=== PATIENT | male | born 1975 | race Caucasian/White ===

== ENCOUNTER 2018-02-06 20:38 | Emergency (ER) | payer SELFPAY ==
[2018-02-06] MEDS ORDERED: NORMAL SALINE 500 ML IV ONE (21:24)
[2018-02-06] MEDS ORDERED: ASPIRIN 81 MG TABLET, CHEWABLE PO ONE (21:24)
[2018-02-06] MEDS ORDERED: ONDANSETRON HCL INJ/PF 4 MG/2 ML SDV IV ONE (21:24)
[2018-02-06 21:42] LABS: ABSOLUTE LYMPHOCYTES (AUTO) 1.5 10^3/uL (0.5-4.7); ABSOLUTE MONOCYTES (AUTO) 0.5 10^3/uL (0.1-1.4); ABSOLUTE NEUT (AUTO) 13.5 10^3/uL (1.7-8.2); BASOPHILS % (AUTO) 0.1 % (0-2); HEMATOCRIT 45.1 % (37.9-51.0); HEMOGLOBIN 15.7 g/dL (13.5-17.0); LYMPHOCYTES % (AUTO) 9.4 % (13-45); MEAN CORPUSCULAR HEMOGLOBIN 29.6 pg (27.0-33.4); MEAN CORPUSCULAR HGB CONC 34.7 g/dL (32.0-36.0); MEAN CORPUSCULAR VOLUME 86 fl (80-97); MONOCYTES % (AUTO) 3.5 % (3-13); PLATELET COUNT 335 10^3/uL (150-450); RED BLOOD COUNT 5.28 10^6/uL (4.35-5.55); RED CELL DISTRIBUTION WIDTH 13.4 % (11.5-14.0); TOTAL CELLS COUNTED % (AUTO) 100 %; WHITE BLOOD COUNT 15.5 10^3/uL (4.0-10.5)
[2018-02-06 21:52] LABS: INTERNATIONAL RATION (INR) 1.04; PROTHROMBIN TIME 14.1 SEC (11.4-15.4)
[2018-02-06 22:02] LABS: ALANINE AMINOTRANSFERASE 43 U/L (21-72); ALBUMIN 4.6 g/dL (3.5-5.0); ALKALINE PHOSPHATASE 76 U/L (38-126); ANION GAP 16 (5-19); ASPARTATE AMINO TRANSFERASE 26 U/L (17-59); BILIRUBIN,DIRECT 0.3 mg/dL (0.0-0.4); BILIRUBIN,TOTAL 0.5 mg/dL (0.2-1.3); BLOOD UREA NITROGEN 10 mg/dL (7-20); CARBON DIOXIDE 26 mmol/L (22-30); CHLORIDE 101 mmol/L (98-107); CREATINE KINASE 102 U/L (55-170); GLUCOSE 129 mg/dL (75-110); POTASSIUM 4.6 mmol/L (3.6-5.0); SODIUM 142.7 mmol/L (137-145); TOTAL PROTEIN 7.6 g/dL (6.3-8.2)
--- NOTE | 2018-02-06 22:13 | ER Document Report ---
ED General - General Mode of Arrival: Ambulatory Information source: Patient TRAVEL OUTSIDE OF THE U.[place]. IN LAST 30 DAYS: No <GRIS STAUFFER - Last Filed: 02/07/18 00:51> <BISHOP CRAWFORD - Last Filed: 02/07/18 04:22> - General Chief Complaint: Chest Pain Stated Complaint: VOMITING Time Seen by Provider: 02/06/18 21:18 Notes: Patient is a 42 year old male that presents to the emergency department today with complaints of dizziness with associated nausea. Patient states he was awoken this morning with a feeling of nausea. Patient states he walked to the kitchen thinking that he might need to eat something. states she heard the patient so she got up as well and found him lying on the kitchen floor vomiting. Patient also complains of a headache. Patient states he has been having headaches his whole life but they have gotten worse in the last 3 months. states the patient is not acting like himself and has been shivering and sweating profusely since waking up this morning. Patient and deny any fevers. (GRIS STAUFFER) - Related Data Allergies/Adverse Reactions: No Known Allergies Allergy (Verified 02/06/18 21:31) Past Medical History - General Information source: Patient - Social History Smoking Status: Current Every Day Smoker Cigarette use (# per day): Yes Frequency of alcohol use: None Drug Abuse: None Lives with: Family Family History: Reviewed & Not Pertinent Patient has suicidal ideation: No Patient has homicidal ideation: No Renal/ Medical History: Denies: Hx Peritoneal Dialysis GI Medical History: Reports: Hx Gastroesophageal Reflux Disease Surgical Hx: Negative <GRIS STAUFFER - Last Filed: 02/07/18 00:51> Review of Systems - Review of Systems Constitutional: See HPI, Chills, Diaphoresis. denies: Fever EENT: No symptoms reported Cardiovascular: See HPI, Dizziness Respiratory: No symptoms reported Gastrointestinal: See HPI, Nausea, Vomiting Genitourinary: No symptoms reported Male Genitourinary: No symptoms reported Musculoskeletal: No symptoms reported Skin: No symptoms reported Hematologic/Lymphatic: No symptoms reported Neurological/Psychological: See HPI, Headaches. denies: Weakness, Numbness, Tingling -: Yes All other systems reviewed and negative <GRIS STAUFFER - Last Filed: 02/07/18 00:51> Physical Exam - Vital signs Interpretation: Normal - General General appearance: Alert In distress: Mild - Respiratory Respiratory status: No respiratory distress Breath sounds: Normal - Cardiovascular Rhythm: Regular - Abdominal Inspection: Normal Tenderness: Nontender - Back Back: Normal - Extremities General upper extremity: Normal inspection, Normal ROM General lower extremity: Normal inspection, Normal ROM - Neurological Neuro grossly intact: No Cognition: Confused Orientation: Disoriented to place, Disoriented to time [place] Coma Scale Eye Opening: Spontaneous [place] Coma Scale Verbal: Confused [place] Coma Scale Motor: Obeys Commands Nohemi Coma Scale Total: 14 Speech: Normal Cranial nerves: Normal Cerebellar coordination: Gait ataxia Motor strength normal: LUE, RUE, LLE, RLE - Psychological Associated symptoms: Normal affect, Normal mood - Skin Skin Temperature: Warm Skin Moisture: Dry Skin Color: Normal <BISHOP CRAWFORD - Last Filed: 02/07/18 04:22> - Vital signs Vitals: Temp Pulse Resp BP Pulse Ox 98.2 F 92 20 146/91 H 99 02/06/18 20:59 02/06/18 20:59 02/06/18 20:59 02/06/18 20:59 02/06/18 20:59 Course - Laboratory Result Diagrams: 02/06/18 21:23 02/06/18 21:23 <GRIS STAUFFER - Last Filed: 02/07/18 00:51> - Laboratory Result Diagrams: 02/06/18 21:23 02/06/18 21:23 - Diagnostic Test Radiology reviewed: Image reviewed, Reports reviewed <BISHOP CRAWFORD - Last Filed: 02/07/18 04:22> - Re-evaluation Re-evalutation: 02/07/18 02:17 Patient is a 42-year-old male who presented with nausea and vomiting. Patient is difficult to get a history out of and states that the patient has not been acting himself most of the day. States that he keeps falling over and has been vomiting a lot today. Patient does not know the month or the year. He is having a difficult time remembering where he is. Patient answers questions but not with an answer that necessarily make sense. For example when I am asking him if he has had a headache. Patient tells me that he has been nauseated all day. Patient eventually stated that he did have a headache and he has been having them for some time. states that she has been unaware of this. CT showing right cerebellar edema. Patient does have symptoms correlating with this such as being off balance with nausea vomiting and headache. Patient has not had a fever although he does have some leukocytosis. Discussed with neurology at [facility] who agrees that the patient should be transferred as there is no neurology available here and given the edema in the posterior fossa , concern for possible neurosurgical intervention will be required. Does not recommend seizure prophylaxis or dexamethasone at this time. I discussed this at length with the patient and his . is agreeable to transfer. Patient has had stable vitals with no severe hypertension. Nausea and vomiting have been controlled with Zofran and Reglan. Stable at the time of transfer to [facility]. (BISHOP CRAWFORD) - Vital Signs Vital signs: Temp Pulse Resp BP Pulse Ox 97.5 F 64 16 139/78 H 96 02/07/18 02:00 02/06/18 23:58 02/07/18 02:00 02/07/18 02:00 02/07/18 02:00 - Laboratory Laboratory results interpreted by me: 02/06/18 02/06/18 21:23 21:23 WBC 15.5 H Seg Neutrophils % 87.0 H Lymphocytes % 9.4 L Absolute Neutrophils 13.5 H Glucose 129 H Discharge <GRIS STAUFFER - Last Filed: 02/07/18 00:51> <BISHOP CRAWFORD - Last Filed: 02/07/18 04:22> - Discharge Clinical Impression: Acute CVA (cerebrovascular accident) Vomiting Qualifiers: Vomiting type: unspecified Vomiting Intractability: unspecified Nausea presence : with nausea Qualified Code(s): R11.2 - Nausea with vomiting, unspecified Headache Qualifiers: Headache type: unspecified Headache chronicity pattern: acute headache Intractability: intractable Qualified Code(s): R51 - Headache Altered mental status Qualifiers: Altered mental status type: unspecified Qualified Code(s): R41.82 - Altered mental status, unspecified Condition: Stable Disposition: [facility] Referrals: RAFAEL KIM MD [Primary Care Provider] - Follow up as needed Scribe Attestation: 02/07/18 04:17 I personally performed the services described in the documentation, reviewed and edited the documentation which was dictated to the scribe in my presence, and it accurately records my words and actions. (BISHOP CRAWFORD) Scribe Documentation - Scribe Written by Scribe:: Hernandez Hollingsworth, 02/07/2018 0101 acting as scribe for :: Maria Del Carmen <GRIS STAUFFER - Last Filed: 02/07/18 00:51>
[2018-02-06 22:14] LABS: CREATINE KINASE MB 1.26 ng/mL (<4.55)
[2018-02-06 22:15] LABS: TROPONIN I < 0.012 ng/mL
--- NOTE | 2018-02-06 22:59 | RADIOLOGY REPORT (SQ) ---
EXAM DESCRIPTION: CT HEAD WITHOUT IV CONTRAST COMPLETED DATE/TME: 02/06/2018 22:10 CLINICAL HISTORY: 42 years Male, headahce, N/V COMPARISON: None. TECHNIQUE: No contrast. Coronal and sagittal reformat. This exam was performed according to our departmental dose-optimization program, which includes automated exposure control, adjustment of the mA and/or kV according to patient size and/or use of iterative reconstruction technique. FINDINGS: Moderate low attenuation lesion of the right cerebellum with cytotoxic edema may indicate subacute ischemia. No hemorrhage. No mass, mass effect, or midline shift. Brain and extra-axial structures appear otherwise intact. IMPRESSION: Cytotoxic edema pattern of the right cerebellum may indicate subacute ischemia. Differential etiologies include infectious, inflammatory, and neoplastic processes. Recommend further evaluation/surveillance with MRI or contrast CT.
--- NOTE | 2018-02-06 23:02 | RADIOLOGY REPORT (SQ) ---
EXAM DESCRIPTION: CT angiogram of the brain, 02/06/2018 9:57 PM CDT CLINICAL HISTORY: 42 years, Male, headache, N/V COMPARISON: CT head without contrast February 06, 2018 TECHNIQUE: Following the time administration of intravenous contrast, volumetric CT acquisition was performed through the brain. Images in the axial plane were presented for interpretation. This exam was performed according to our departmental dose-optimization program, which includes automated exposure control, adjustment of the mA and/or kV according to patient size and/or use of iterative reconstruction technique. Measurements and stenosis evaluation is based on NASCET criteria. RADIATION DOSE/CONTRAST : DLP-187.88 FINDINGS: Right Brain The right internal carotid artery is normal in course and caliber from its cervical through the supraclinoid segments. The right middle cerebral artery is normal in course, caliber, and branching pattern. The right anterior cerebral artery is normal in course, caliber and branching pattern. Left Brain: The left internal carotid artery is normal in course and caliber from its cervical through the supraclinoid segments. The left middle cerebral artery is normal in course, caliber, and branching pattern. The left anterior cerebral artery is normal in course, caliber and branching pattern.The anterior communicating artery is nonvisualized. There is no evidence of aneurysm or dissection in the anterior circulation or at the MCA bifurcation. Posterior Circulation: The vertebral arteries are normal in course and caliber through the basilar artery. The basilar artery has normal branching pattern. There is no evidence of aneurysm or dissection in the posterior circulation. The posterior cerebral arteries are symmetric and normal in appearance bilaterally. There is a origin of the right CAR RENTAL MANAGER. Brain: Overall, the vasculature of the brain demonstrates normal and symmetric arborization pattern. No enhancing masses or vascular malformations are identified. The brain parenchyma demonstrates normal homogeneous enhancement. The soft tissue structures of the face and scalp are normal. The globes remain intact. The soft tissues of the orbital fossas are normal. The paranasal sinuses are clear. Limited evaluation of the facial bones demonstrate no gross abnormalities. The calvarium remains intact. There is no evidence of acute intracranial hemorrhage, midline shift, or mass effect. The ventricles are age appropriate in size. The posterior fossa structures are within normal limits. IMPRESSION: No evidence of aneurysm, dissection, or large vessel occlusion.
--- NOTE | 2018-02-06 23:41 | EKG REPORT ---
SEVERITY:- NORMAL ECG - SINUS RHYTHM : Confirmed by: Naldo Ortiz 06-Feb-2018 23:40:24
[2018-02-07] MEDS ORDERED: METOCLOPRAMIDE HCL INJ/PF 10 MG/2 ML SDV IV ONE (00:48)
[2018-02-07] MEDS ORDERED: ONDANSETRON HCL INJ/PF 4 MG/2 ML SDV IV ONE (00:49)
[2018-02-07 02:02] VITALS: BP 139/78
== END 2018-02-07 02:15 | disposition short-term general hospital (02) ==
LOC: ER 20:38
DX: I63.9 Cerebral infarction, unspecified (principal); R26.0 Ataxic gait; R41.82 Altered mental status, unspecified; R51 Headache; R42 Dizziness and giddiness; R61 Generalized hyperhidrosis; R11.2 Nausea with vomiting, unspecified; D72.829 Elevated white blood cell count, unspecified; R68.83 Chills (without fever); F17.210 Nicotine dependence, cigarettes, uncomplicated
CPT/HCPCS: 93005; 96376; 99285; 96361; 96374; 96375; 36415; 82553; 82550; 85025; 85610; 80053; 84484; 70450; 70496; 93010; J2765; J2405 ×2; J7040

== ENCOUNTER 2018-05-22 11:47 | Emergency (ER) | payer SELFPAY ==
--- NOTE | 2018-05-22 12:00 | ER Document Report ---
ED Medical Screen (RME) - General Chief Complaint: S/S of Possible Stroke Stated Complaint: POSSIBLE STROKE SYMPTOMS Time Seen by Provider: 05/22/18 11:58 Mode of Arrival: Ambulatory Information source: Patient TRAVEL OUTSIDE OF THE [place] IN LAST 30 DAYS: No - HPI Patient complains to provider of: AMBRIZ, dizziness Onset: Yesterday - pt with prior h/o CVA with onset of "head heaviness" and dizziness at 6 pm yesterday. - Related Data Allergies/Adverse Reactions: No Known Allergies Allergy (Verified 05/22/18 11:48) Past Medical History Renal/ Medical History: Denies: Hx Peritoneal Dialysis GI Medical History: Reports: Hx Gastroesophageal Reflux Disease Physical Exam - Vital signs Vitals: Temp Pulse Resp BP Pulse Ox 98.3 F 66 20 132/86 H 96 05/22/18 11:54 05/22/18 11:54 05/22/18 11:54 05/22/18 11:54 05/22/18 11:54 Course - Vital Signs Vital signs: Temp Pulse Resp BP Pulse Ox 98.3 F 66 20 132/86 H 96 05/22/18 11:54 05/22/18 11:54 05/22/18 11:54 05/22/18 11:54 05/22/18 11:54 Doctor's Discharge - Discharge Referrals: RAFAEL KIM MD [Primary Care Provider] - Follow up as needed
[2018-05-22 12:39] LABS: ABSOLUTE BASOPHILS # (AUTO) 0.1 10^3/uL (0.0-0.2); ABSOLUTE LYMPHOCYTES (AUTO) 1.9 10^3/uL (0.5-4.7); ABSOLUTE MONOCYTES (AUTO) 0.6 10^3/uL (0.1-1.4); ABSOLUTE NEUT (AUTO) 6.8 10^3/uL (1.7-8.2); BASOPHILS % (AUTO) 0.6 % (0-2); EOSINOPHILS % (AUTO) 0.3 % (0-6); HEMATOCRIT 42.1 % (37.9-51.0); HEMOGLOBIN 14.7 g/dL (13.5-17.0); LYMPHOCYTES % (AUTO) 20.1 % (13-45); MEAN CORPUSCULAR HEMOGLOBIN 29.5 pg (27.0-33.4); MEAN CORPUSCULAR HGB CONC 34.8 g/dL (32.0-36.0); MEAN CORPUSCULAR VOLUME 85 fl (80-97); MONOCYTES % (AUTO) 6.2 % (3-13); PLATELET COUNT 341 10^3/uL (150-450); RED BLOOD COUNT 4.98 10^6/uL (4.35-5.55); RED CELL DISTRIBUTION WIDTH 13.1 % (11.5-14.0); SEGMENTED NEUTROPHILS % (AUTO) 72.8 % (42-78); TOTAL CELLS COUNTED % (AUTO) 100 %; WHITE BLOOD COUNT 9.4 10^3/uL (4.0-10.5)
--- NOTE | 2018-05-22 12:46 | RADIOLOGY REPORT (SQ) ---
EXAM DESCRIPTION: CT HEAD WITHOUT COMPLETED DATE/TIME: 05/22/2018 12:30 pm REASON FOR STUDY: AMBRIZ COMPARISON: None. TECHNIQUE: Axial images acquired through the brain without intravenous contrast. Images reviewed wi th bone, brain and subdural windows. Images stored on PACS. All CT scanners at this facility use dose modulation, iterative reconstruction, and/or weight based d osing when appropriate to reduce radiation dose to as low as reasonably achievable (ALARA). [facility]: Dose Right [facility]: CareDose [facility]: Dose Right [facility]: Teradose 4D [facility]: Smart [place] RADIATION DOSE: CT Rad equipment meets quality standard of care and radiation dose reduction techniq ues were employed. CTDIvol: 53.2 mGy. DLP: 1097 mGy-cm. mGy. LIMITATIONS: None. FINDINGS: VENTRICLES: Normal size and contour. CEREBRUM: No masses. No hemorrhage. No midline shift. No evidence for acute infarction. Normal gra y/white matter differentiation. No areas of low density in the white matter. CEREBELLUM: No masses. No hemorrhage. No alteration of density. No evidence for acute infarction. EXTRAAXIAL SPACES: No fluid collections. No masses. ORBITS AND GLOBE: No intra- or extraconal masses. Normal contour of globe without masses. CALVARIUM: No fracture. PARANASAL SINUSES: Nasal septal deviation to the right. Mucosal thickening right maxillary sinus con sistent with chronic change. Hypoplastic right frontal sinus. SOFT TISSUES: No mass or hematoma. OTHER: No other significant finding. IMPRESSION: CHRONIC RIGHT MAXILLARY SINUSITIS. NORMAL BRAIN CT WITHOUT CONTRAST. EVIDENCE OF ACUTE STROKE: NO. COMMENT: Quality ID # [id number]: Final reports with documentation of one or more dose reduction techniques (e.g., Automated exposure control, adjustment of the mA and/or kV according to patient size, use of iterative reconstruction technique) TECHNICAL DOCUMENTATION: JOB ID: [id number] [employer]- All Rights Reserved Reading location - IP/workstation name: [email or web address]
[2018-05-22 12:50] LABS: ALANINE AMINOTRANSFERASE 34 U/L (21-72); ALBUMIN 4.5 g/dL (3.5-5.0); ALKALINE PHOSPHATASE 99 U/L (38-126); ANION GAP 11 (5-19); ASPARTATE AMINO TRANSFERASE 30 U/L (17-59); BILIRUBIN,DIRECT 0.3 mg/dL (0.0-0.4); BILIRUBIN,TOTAL 0.7 mg/dL (0.2-1.3); BLOOD UREA NITROGEN 16 mg/dL (7-20); CALCIUM 9.8 mg/dL (8.4-10.2); CARBON DIOXIDE 28 mmol/L (22-30); CHLORIDE 104 mmol/L (98-107); GLUCOSE 109 mg/dL (75-110); POTASSIUM 4.2 mmol/L (3.6-5.0); TOTAL PROTEIN 7.8 g/dL (6.3-8.2)
[2018-05-22] MEDS ORDERED: PROCHLORPERAZINE EDISYLATE INJ 10 MG/2 ML VIAL IV ONE (12:53)
[2018-05-22] MEDS ORDERED: ONDANSETRON HCL INJ/PF 4 MG/2 ML SDV IV ONE (12:53)
[2018-05-22] MEDS ORDERED: NORMAL SALINE 1000 ML 1,000 ML IV ONE (12:57)
[2018-05-22] MEDS ORDERED: DIAZEPAM INJ 10 MG/2 ML DISP.SYRIN IV ONE (13:13)
--- NOTE | 2018-05-22 14:06 | RADIOLOGY REPORT (SQ) ---
EXAM DESCRIPTION: MRI HEAD WITHOUT COMPLETED DATE/TIME: 05/22/2018 1:53 pm REASON FOR STUDY: headache headfullness COMPARISON: CT scan 05/22/2018 and priors TECHNIQUE: Multiplanar imaging includes non-contrasted T1, T2, FLAIR, and diffusion with ADC map seq uences. Images stored on PACS. LIMITATIONS: None. FINDINGS: ANATOMY: No anomalies. Normal vascular flow voids. Pituitary fossa normal. CSF SPACES: Normal in size and contour. No hemorrhage. CEREBRUM: Sulci and gyri normal in size and contour. Normal white matter signal on FLAIR imaging. No evidence of hemorrhage, mass, or extraaxial fluid collection. POSTERIOR FOSSA: Old right cerebellar hemispheric infarct with dystrophic calcification. No acute fi ndings. DIFFUSION IMAGING: Negative for acute or sub-acute infarction. ORBITS: No masses. Globes normal. PARANASAL SINUSES: No fluid levels. Mucosa normal. OTHER: No other significant finding. 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 No acute findings. EVIDENCE OF ACUTE STROKE: NO. TECHNICAL DOCUMENTATION: JOB ID: [id number] [employer]- All Rights Reserved Reading location - IP/workstation name: [email or web address]
--- NOTE | 2018-05-22 14:19 | ER Document Report ---
ED General - General Chief Complaint: S/S of Possible Stroke Stated Complaint: POSSIBLE STROKE SYMPTOMS Time Seen by Provider: 05/22/18 11:58 Mode of Arrival: Ambulatory TRAVEL OUTSIDE OF THE [place] IN LAST 30 DAYS: No - HPI Patient complains to provider of: Fullness in head numbness Notes: Patient with a history in February of having a hemorrhagic stroke. Patient states since that time has been monitored with a implanted monitor states have intermittent runs of atrial fibrillation was present start Xarelto tomorrow however states yesterday at 1600 hrs. started having fullness in the head with some intermittent numbness and tingling around to his face. Patient denies any fevers chills nausea vomiting diarrhea denies any dizziness lightheadedness. Patient was seen ambulating to his room without any difficulty. Patient denies any new physical activities denies any change in his daily regiment in the last few days. Denies any changes in the medications. Patient continues to states he feels like a fullness similar to when he had a hemorrhagic stroke back in February however states at that time he had significant nausea vomiting which he does not have at this time. Patient came in concern for possibly acute stroke again. A brief review of the patient's medical records available in [facility] was performed - Related Data Allergies/Adverse Reactions: No Known Allergies Allergy (Verified 05/22/18 11:48) Past Medical History - General Information source: Patient - Social History Smoking Status: Former Smoker Family History: Reviewed & Not Pertinent Patient has suicidal ideation: No Patient has homicidal ideation: No - Past Medical History Cardiac Medical History: Reports: Hx Atrial Fibrillation Renal/ Medical History: Denies: Hx Peritoneal Dialysis GI Medical History: Reports: Hx Gastroesophageal Reflux Disease Review of Systems - Review of Systems Constitutional: No symptoms reported EENT: No symptoms reported Cardiovascular: No symptoms reported Respiratory: No symptoms reported Gastrointestinal: No symptoms reported Genitourinary: No symptoms reported Male Genitourinary: No symptoms reported Musculoskeletal: No symptoms reported Skin: No symptoms reported Hematologic/Lymphatic: No symptoms reported Neurological/Psychological: Headaches - Head fullness -: Yes All other systems reviewed and negative Physical Exam - Vital signs Vitals: Pulse Resp BP Pulse Ox 66 20 132/86 H 96 05/22/18 11:51 05/22/18 11:51 05/22/18 11:51 05/22/18 11:51 Interpretation: Normal - General General appearance: Appears well, Alert - HEENT Head: Normocephalic, Atraumatic Eyes: Normal Pupils: PERRL - Respiratory Respiratory status: No respiratory distress Chest status: Nontender Breath sounds: Normal Chest palpation: Normal - Cardiovascular Rhythm: Regular Heart sounds: Normal auscultation Murmur: No - Abdominal Inspection: Normal Distension: No distension Bowel sounds: Normal Tenderness: Nontender Organomegaly: No organomegaly - Back Back: Normal, Nontender - Extremities General upper extremity: Normal inspection, Nontender, Normal color, Normal ROM , Normal temperature General lower extremity: Normal inspection, Nontender, Normal color, Normal ROM , Normal temperature, Normal weight bearing. No: Terrance's sign - Neurological Neuro grossly intact: Yes Cognition: Normal Orientation: AAOx4 Nohemi Coma Scale Eye Opening: Spontaneous Nohemi Coma Scale Verbal: Oriented Nohemi Coma Scale Motor: Obeys Commands [place] Coma Scale Total: 15 Speech: Normal Cranial nerves: Normal Cerebellar coordination: Normal Motor strength normal: LUE, RUE, LLE, RLE Additional motor exam normals: Equal breast worker Sensory: Normal Knee - Reflex grade: 2 = Normal - Psychological Associated symptoms: Normal affect, Normal mood - Skin Skin Temperature: Warm Skin Moisture: Dry Skin Color: Normal Course - Re-evaluation Re-evalutation: 05/22/18 15:02 Patient's neurological evaluation did not reveal any deficits no signs of acute stroke on physical examination. Patient's head CT also did not show any signs of acute bleed. Because the patient stating the symptoms are very similar to when he had a hemorrhagic stroke in the past I did go ahead and perform an MRI of the head which did return negative no signs of any acute pathology evidence of the patient's stroke in the past was seen. Did discuss prior to MRI patient' s presentation with his neurologist Dr. Martines at [facility]. Agrees my assessment and plan that more likely patient has atypical headache will treat with Zofran Compazine MRI negative discharge home. Upon reevaluation of the patient at the or the MRI patient states symptoms have resolved there is no more fullness of his head. Will negative MRI more likely patient does have a typical headaches. Could be due to his recent CVA. Explained to the patient I would recommend Compazine Zofran treatment at home along with Tylenol Motrin recommend patient follow-up with his neurology staff and his primary care physician as needed. Patient is to return to the ER if any symptoms return or for any other concerning pathology. Patient is to continue his home medications. Family and patient agree with this plan stated understanding of the plan - Vital Signs Vital signs: Temp Pulse Resp BP Pulse Ox 98.5 F 63 16 118/76 99 05/22/18 14:51 05/22/18 14:51 05/22/18 14:51 05/22/18 14:51 05/22/18 14:51 - Laboratory Result Diagrams: 05/22/18 12:18 05/22/18 12:18 Discharge - Discharge Clinical Impression: Headache Qualifiers: Headache type: unspecified Headache chronicity pattern: unspecified pattern Intractability: not intractable Qualified Code(s): R51 - Headache Condition: Good Disposition: HOME, SELF-CARE Instructions: Headache ([facility]), Migraine Headache ([facility]) Additional Instructions: Your physical examination today head CT MRI of your head does not show any signs of an acute stroke at this time. Do believe that the symptoms that you are having may be related to an atypical migraine. I did discuss your case with neurology at [facility] Dr Martines who agrees with this assessment. I recommend continuing your home medications as prescribed. Please make sure you drink plenty of water to stay hydrated eat a healthy diet. I recommend controlling your symptoms with the 2 medications we gave you here in the ER and Compazine and Zofran. I would recommend taking these 2 medications together for headache may take them separately for any nausea that she may have. Please call your primary care physician and especially services to schedule follow-up appointments. Return to the ER if symptoms worsen. Or for any other concerns. Prescriptions: Ondansetron HCl [Zofran 4 mg Tablet] 1 - 2 tab PO Q6 #30 tablet Prochlorperazine Maleate [Compazine] 5 mg PO Q6 #30 tablet Referrals: RAFAEL KIM MD [Primary Care Provider] - Follow up as needed
[2018-05-22 14:45] VITALS: BP 118/76
--- NOTE | 2018-05-22 17:28 | EKG REPORT ---
SEVERITY:- NORMAL ECG - SINUS RHYTHM : Confirmed by: Naldo Ortiz 22-May-2018 17:28:17
== END 2018-05-22 14:52 | disposition home or self-care (01) ==
LOC: ER 11:47
DX: R51 Headache (principal); R20.0 Anesthesia of skin; I48.91 Unspecified atrial fibrillation; Z79.01 Long term (current) use of anticoagulants
CPT/HCPCS: 93005; 99285; 96361; 96374; 96375; 36415; 85025; 80053; 84484; 70551; 70450; 93010; J3360; J0780; J2405; J7030